=== PATIENT | female | born 1940 | race Caucasian/White ===

== ENCOUNTER → 2017-02-28 | Outpatient (CLI) | payer OTHER ==
--- NOTE | ~2017-02-28 | CR63 ---
[facility] A Service [facility] RADIOLOGY TEXT RESULTS PATIENT: ECHO TUBBS LOCATION: [facility] : 41 UNIT #: [id number] AGE: [address]: Omar Rothman MD SEX: F ORDER DR: [id number] [facility] [address] [place], [place] [address] [id number] O MR#: [id number] Acc #: [id number] NAME: ECHO TUBBS : 1940 SEX: F STUDY DATE/TIME: 02/28/2017 11:04 UNIT: [facility] ROOM: STUDY DESCRIPTION: CR Chest 2 View Attending Physician: Omar Rothman M.D. Referring Physician: Omar Rothman M.D. Ordering Physician: Omar Rothman M.D. Primary Care Physician: Page Raymond M.D. MEDICAL IMAGING REPORT This report is preliminary unless electronic signature is present EXAM Chest, 02/28/17; [facility]. HISTORY 76-year-old woman, short of air, history of melanoma. COMPARISON Chest, 02/26/16. FINDINGS Two-view chest demonstrates normal and stable heart size. Hilar structures and mediastinal contours are preserved and stable. Lungs are hyperinflated with some flattening of both hemidiaphragms. Generalized demineralization noted with a mildly exaggerated thoracic kyphosis. I see no infiltrates, no pulmonary nodules and no effusions. IMPRESSION Generalized pulmonary hyperinflation most consistent with COPD. Generalized demineralization with exaggerated kyphosis. No acute chest finding. Dictated by... Eddie Ortiz M.D. THIS IS AN ELECTRONICALLY VERIFIED REPORT Eddie Ortiz M.D. at 03/01/2017 9:39 AM ROCCO/zoila TD: 02/28/2017 16:33 JOB #: [id number] MEDICAL IMAGING REPORT [facility] A Service [facility] RADIOLOGY TEXT RESULTS PATIENT: ECHO TUBBS LOCATION: [facility] #: [id number] : 41 UNIT #: [id number] AGE: [address]: Omar Rothman MD SEX: F ORDER DR: Page 1 of 1 COPY
== END | disposition home or self-care (01) ==
LOC: CRAD 10:54
DX: C43.59 Malignant melanoma of other part of trunk (principal); J98.4 Other disorders of lung; M40.204 Unspecified kyphosis, thoracic region; M81.0 Age-related osteoporosis without current pathological fracture
CPT/HCPCS: 71020